=== PATIENT | male | born 1935 | race Caucasian/White ===

== ENCOUNTER 2016-12-12 09:11 | Emergency (ER) | payer MEDICARE, OTHER ==
[~2016-12-12 09:11] MED LIST: ADULT LOW DOSE81 M1 PO; AMBIEN5 M1 PO; AMBIEN5 MG PO; CITRUCEL500 M1 PO; CYMBALTA60 M1 PO; IMBRUVICA140 M1 PO; LIPITOR40 M1 PO; LISINOPRIL10 MG PO; LYRICA150 MG/CAP PO; LYRICA75 MG PO; MULTIVITAMINS1 EAC6 PO; NITROSTAT0.4 MG/TAB SL; NORVASC5 M2 PO; NUCYNTA50 M1 PO; OMEGA 3 1,0001 EAC1 PO; OMEGA 3 1,0001 EACH PO; OPANA PO; PLAVIX75 M1 PO; PREDNISONE10 M1 PO; SENNA8.6 M PO; SENNA8.6 M2 PO; TOPROL XL25 M1 PO; ULTRAM50 M1 PO; [UNRECOGNIZED DRUG - OTHER] PO
[2016-12-12] MEDS ORDERED: CITRUCEL500 M1 PO (09:34)
[2016-12-12] MEDS ORDERED: ALLOPURINOL300 M1 PO (09:35)
[2016-12-12] MEDS ORDERED: ZOFRAN4 M2 PO (09:36)
[2016-12-12 10:34] LABS: eGFR VALUE FOR BLACK >90 mL/Min
[2016-12-12] MEDS ORDERED: XARELTO15 M1 PO (10:47)
[2017-04-05] MEDS ORDERED: AMOXICILLIN500 M2 PO (14:25)
[2017-04-05] MEDS ORDERED: XARELTO20 M2 PO (14:46)
== END 2016-12-12 10:59 ==
LOC: EDMED 09:11
PROVIDERS: Emergency Medicine
DX: I82.4Z1 Acute embolism and thrombosis of unspecified deep veins of right distal lower extremity (principal); I25.10 Atherosclerotic heart disease of native coronary artery without angina pectoris; Z95.5 Presence of coronary angioplasty implant and graft; Z95.1 Presence of aortocoronary bypass graft; I10 Essential (primary) hypertension; M79.661 Pain in right lower leg; Z96.652 Presence of left artificial knee joint; Z87.891 Personal history of nicotine dependence; Z79.82 Long term (current) use of aspirin; Z79.899 Other long term (current) drug therapy

== ENCOUNTER 2017-02-04 09:58 | Emergency (ER) | payer MEDICARE, OTHER ==
[~2017-02-04 09:58] MED LIST changes: +ALLOPURINOL300 M1 PO; +XARELTO15 M1 PO; +ZOFRAN4 M2 PO
[2017-02-04] MEDS ORDERED: OPANA PO (10:15)
[2017-02-04 11:37] LABS: BASO % 0.1 % (0-2); EOSINOPHIL ABSOLUTE COUNT 0.2 tho/cmm (0.0-0.7); HCT-HEMATOCRIT 30.2 % (36.0-53.5); HGB-HEMOGLOBIN 9.7 gm/dl (13.5-17.0); IMMATURE GRANULOCYTES ABSOLUTE 0.05 tho/cmm (0-0.03); IMMATURE GRANULOCYTES PERCENT 0.3 % (0-0.3); LYMPH % 4.5 % (20-45); LYMPH ABSOLUTE COUNT 0.7 tho/cmm (0.8-4.5); MCH (MEAN CORPUSCULAR HGB) 30.7 pg (28.0-32.0); MCHC MEAN CORPUSCULAR HGB CONC 32.1 % (32.0-36.0); MCV (MEAN CELL VOLUME) 95.6 fl (82.0-96.0); MEAN PLATELET VOLUME 10.5 cmc (9.4-12.4); MONO % 5.7 % (0-12); MONOCYTE ABSOLUTE COUNT 0.9 tho/cmm (0.0-1.2); NEUTROPHIL ABSOLUTE COUNT 13.2 tho/cmm (1.6-8.0); NEUTROPHIL-AUTOMATED 13.2 tho/cmm (1.6-8.0); NEUTROPHILS % 88.4 % (40-80); PLATELET COUNT 242 tho/cmm (150-450); RED BLOOD COUNT 3.16 mil/cmm (4.40-5.70); RED CELL DISTRIBUTION WIDTH 16.6 % (12.4-16.4); WHITE BLOOD COUNT 14.9 tho/cmm (4.0-10.0)
[2017-04-05] MEDS ORDERED: AMOXICILLIN500 M2 PO (14:25)
[2017-04-05] MEDS ORDERED: XARELTO20 M2 PO (14:46)
== END 2017-02-04 12:17 ==
LOC: EDMED 09:58
PROVIDERS: Emergency Medicine
DX: S70.01XA Contusion of right hip, initial encounter (principal); I10 Essential (primary) hypertension; E78.5 Hyperlipidemia, unspecified; Z86.718 Personal history of other venous thrombosis and embolism; Z95.1 Presence of aortocoronary bypass graft; Z90.79 Acquired absence of other genital organ(s); Z79.82 Long term (current) use of aspirin; Z79.899 Other long term (current) drug therapy; Z87.891 Personal history of nicotine dependence; W11.XXXA Fall on and from ladder, initial encounter; Y92.019 Unspecified place in single-family (private) house as the place of occurrence of the external cause